=== PATIENT | male | born 1965 | race Caucasian/White ===

== ENCOUNTER 2022-12-01 08:22 | Emergency (ER) | payer BC ==
[~2022-12-01] VITALS: Ht 182.9 cm; Wt 113.6 kg
--- NOTE | 2022-12-01 08:33 | NUR ---
[id number]
[2022-12-01 09:31] LABS: BASOPHILS # (AUTO) 0.1 X10'3 (0-0.2); BASOPHILS % (AUTO) 1.6 % (0-1); EOSINOPHILS % (AUTO) 0.7 % (0-6); HEMATOCRIT 44.6 % (42.0-52.0); HEMOGLOBIN 15.8 g/dl (14.0-17.9); MEAN CORPUSCULAR HEMOGLOBIN 36.9 PG (27.0-31.0); MEAN CORPUSCULAR HGB CONC 35.4 g/dL (33.0-36.5); MEAN CORPUSCULAR VOLUME 104.1 FL (78-98); MEAN PLATELET VOLUME 7.1 FL (7.4-10.4); MONOCYTES # (AUTO) 0.3 X10'3 (0-0.9); MONOCYTES % (AUTO) 5.9 % (2-12); NEUTROPHILS # (AUTO) 3.3 X10'3 (1.8-7.7); NEUTROPHILS % (AUTO) 70.8 % (42-75); PLATELET COUNT 154 X10'3 (140-440); RED BLOOD COUNT 4.28 X10'6 (4.70-6.10); RED CELL DISTRIBUTION WIDTH 12.4 % (11.5-14.5); WHITE BLOOD COUNT 4.6 X10'3 (4.5-11.0)
[2022-12-01 09:47] LABS: ALANINE AMINOTRANSFERASE 84 U/L (12-78); ALBUMIN 4.3 G/DL (3.4-5.0); ALBUMIN/GLOBULIN RATIO 1.1 (1.1-1.5); ALKALINE PHOSPHATASE 50 IU/L (46-116); ANION GAP 9 (8-16); ASPARTATE AMINO TRANSFERASE 56 U/L (10-37); BLOOD UREA NITROGEN 21 MG/DL (7-18); BUN/CREATININE RATIO 26.6 (10.0-20.0); CALCIUM 9.1 MG/DL (8.5-10.1); CHLORIDE 98 MMOL/L (99-107); CREATININE 0.79 MG/DL (0.60-1.10); GLUCOSE 115 MG/DL (70-104); POTASSIUM 3.8 MMOL/L (3.5-5.1); SODIUM 133 MMOL/L (135-145); TOTAL CARBON DIOXIDE 25.8 MMOL/L (24-32); TOTAL PROTEIN 8.2 G/DL (6.4-8.2); eGFR > 90 ML/MIN
[2022-12-01] MEDS ORDERED: LORazepam 2 mg/ml vial IV ONE (10:10)
[2022-12-01] MEDS ORDERED: folic acid 1mg/0.2ml inj IV ONE (10:10)
[2022-12-01] MEDS ORDERED: thiamine 100mg/ml 2ml inj. IV ONE (10:10)
[2022-12-01] MEDS ORDERED: normal saline 1000ml 1,000 ML IV ONE ×2 (11:45)
[2022-12-01 14:37] VITALS: BP 163/93
== END 2022-12-01 14:38 | disposition home or self-care (01) ==
LOC: ER 08:22
DX: F10.930 Alcohol use, unspecified with withdrawal, uncomplicated (principal); E86.0 Dehydration; Y90.9 Presence of alcohol in blood, level not specified; Z79.899 Other long term (current) drug therapy
CPT/HCPCS: 36415; 70450; 71045; 80053; 83880; 84484; 85025; 93005; 96361; 96374; 96375; 99285; J2060; J3411; J3490; J7030